=== PATIENT | male | born 1970 | race Caucasian/White ===

== ENCOUNTER 2017-04-10 13:27 | Emergency (ER) | payer BC ==
[2017-04-10 14:30] VITALS: BP 151/93
[2017-04-10] MEDS ORDERED: Iopamidol 612 MG/ML 100 ML Bottle IV PRN (15:28)
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
== END 2017-04-10 16:49 | disposition home or self-care (01) ==
LOC: JP.ED 13:27
DX: S10.93XA Contusion of unspecified part of neck, initial encounter (principal); S80.812A Abrasion, left lower leg, initial encounter; F17.200 Nicotine dependence, unspecified, uncomplicated; Z98.890 Other specified postprocedural states; Y04.2XXA Assault by strike against or bumped into by another person, initial encounter
CPT/HCPCS: 36415; 70491; 80048; 85025; 99284; J7030; Q9967